=== PATIENT | female | born 1970 | race Two or more races ===

== ENCOUNTER 2020-04-15 07:00 | Day surgery (SDC) | payer OTHER | END 2020-04-15 14:30 | disposition home or self-care (01) | LOC: AMB-ENDOS 07:00 | PROVIDERS: ATTEND Colon & Rectal Surgery | DX: K62.89 Other specified diseases of anus and rectum (principal); K64.1 Second degree hemorrhoids; Z20.828 Contact with and (suspected) exposure to other viral communicable diseases ==

== ENCOUNTER 2021-01-13 07:49 | Day surgery (SDC) | payer OTHER | END 2021-01-13 14:00 | disposition home or self-care (01) | LOC: AMB-ENDOS 07:49 | PROVIDERS: ATTEND Colon & Rectal Surgery | DX: K29.50 Unspecified chronic gastritis without bleeding (principal); K44.9 Diaphragmatic hernia without obstruction or gangrene; Z20.822 Contact with and (suspected) exposure to COVID-19 ==